=== PATIENT | female | born 1940 | race Hispanic/Latino ===

== ENCOUNTER → 2021-03-23 | Outpatient (CLI) | payer OTHER | END | disposition home or self-care (01) | LOC: SHCH 09:07 | PROVIDERS: ATTEND Internal Medicine Cardiovascular Disease | DX: I65.23 Occlusion and stenosis of bilateral carotid arteries (principal); I87.2 Venous insufficiency (chronic) (peripheral) | CPT/HCPCS: 93880 ==

== ENCOUNTER → 2022-05-19 | Outpatient (CLI) | payer OTHER | END | disposition home or self-care (01) | LOC: SHCH 13:37 | PROVIDERS: ATTEND Internal Medicine Cardiovascular Disease | DX: I73.9 Peripheral vascular disease, unspecified (principal); I87.2 Venous insufficiency (chronic) (peripheral) | CPT/HCPCS: 93925; 93970 ==

== ENCOUNTER → 2022-10-04 | Outpatient (CLI) | payer OTHER | END | disposition home or self-care (01) | LOC: SHCH 09:05 | PROVIDERS: ATTEND Internal Medicine Cardiovascular Disease | DX: I87.2 Venous insufficiency (chronic) (peripheral) (principal); I82.811 Embolism and thrombosis of superficial veins of right lower extremity; Z98.890 Other specified postprocedural states | CPT/HCPCS: 93971 ==

== ENCOUNTER → 2022-10-18 | Outpatient (CLI) | payer OTHER | END | disposition home or self-care (01) | LOC: SHCH 08:55 | PROVIDERS: ATTEND Internal Medicine Cardiovascular Disease | DX: I87.2 Venous insufficiency (chronic) (peripheral) (principal); Z98.890 Other specified postprocedural states | CPT/HCPCS: 93971 ==

== ENCOUNTER → 2022-11-22 | Outpatient (CLI) | payer OTHER | END | disposition home or self-care (01) | LOC: SHCH 07:35 | PROVIDERS: ATTEND Internal Medicine Cardiovascular Disease | DX: I70.203 Unspecified atherosclerosis of native arteries of extremities, bilateral legs (principal); I87.2 Venous insufficiency (chronic) (peripheral); I82.811 Embolism and thrombosis of superficial veins of right lower extremity; Z98.890 Other specified postprocedural states | CPT/HCPCS: 93925; 93971 ==

== ENCOUNTER → 2023-10-17 | Outpatient (CLI) | payer OTHER | END | disposition home or self-care (01) | LOC: SHCH 09:40 | PROVIDERS: ATTEND Internal Medicine Cardiovascular Disease | DX: I70.203 Unspecified atherosclerosis of native arteries of extremities, bilateral legs (principal); I87.1 Compression of vein | CPT/HCPCS: 93925; 93970 ==